=== PATIENT | female | born 1985 | race Caucasian/White ===

== ENCOUNTER 2023-02-16 12:45 | Outpatient (AMB) | payer OTHER, SELFPAY ==
--- NOTE | 2023-02-16 12:53 | MHC.PC.OV ---
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 Transferring care from Dr Stallworth ([facility] [address]). Medical records have not been requested and have not received. Voice And Data Technician Required: No Mortarman: Not Required per policy Accompanied by: Self / Same As Patient Allergies sulfamethoxazole [From Bactrim] Allergy (Intermediate, Verified 02/16/23 13:24) Hives trimethoprim [From Bactrim] Allergy (Intermediate, Verified 02/16/23 13:24) Hives Tobacco use date assessed: 02/16/23 Dental Screening Dental Screen Date: 02/16/23 Did you have a dental visit in the last 12 months?: No Did you have a dental problem in the last 6 months where you did not have access to dental care?: No Was dental information given to patient?: No HPI HPI Comments History of Present Illness Details 37-year-old female new patient presents today to establish care past medical history significant for SIBO, endometriosis. Patient reports recently moved from [place]. Discussed referral to Gastroenterology for history of SIBO, patient declined at this time states she previously followed by a software asset manager doctor and [place] prescribes her medications for this. Patient reports she believes she has endometrosis that was dx by her software asset manager.Patient reports negative Pap smear this year, offered referral to Obgyn to establish care locally however patient declines at this time. Patient requesting referral to reproductive Medicine to discuss freezing her eggs, referral entered. Declines acute concerns. Patient declined flu shot, states she is getting her COVID booster on Wednesday. [facility] Medical History Surgical History No pertinent past surgical history Family History Father No problems noted. Mother No problems noted. Social History (Reviewed 02/16/23 @ 13:25 by CARLOS Eason Housing: House Alcohol intake: never Patient Tobacco Use Status: Never used Tobacco e-Cigarette/Vaping Use: Never Used Second Hand Smoke Exposure: No service: No Current occupational status: student Cognitive needs: No Hearing needs: No Vision needs: No Questionnaire PHQ-9 Over the last 2 weeks, how often have you been bothered by any of the following problems? 1. Little interest or pleasure in doing things: not at all 2. Feeling down, depressed, or hopeless: not at all 3. Trouble falling or staying asleep, or sleeping too much: not at all 4. Feeling tired or having little energy: not at all 5. Poor appetite or overeating: not at all 6. Feeling bad about yourself - or that you are a failure or have let yourself or your family down: not at all 7. Trouble concentrating on things, such as reading the newspaper or watching television: not at all 8. Moving or speaking so slowly that other people could have noticed. Or the opposite - being so fidgety or restless that you have been moving around a lot more than usual: not at all 9. Thoughts that you would be better off or of hurting yourself in some way: not at all Total score: 0 Depression Screening Interpretation: Negative Depression Screening Done: Yes 91499 - PHQ-9 Billing: Yes Source: Developed by Drs. Johan Person, Ivis Bacon, Giovanni Willingham and colleagues, with an educational nadine from [employer]. Thrive Questionnaire Date Thrive assessed: 02/16/23 I am a: Patient What is your living situation today?: I have a steady place to live Within the past 12 months, did the food you bought not last and you didn't have the money to get more?: Never true Within the past 12 months, did you worry whether your food would run out before you got money to buy more?: Never true Do you have trouble paying for medicines?: No Do you have trouble getting transportation to medical appointments?: No Do you have trouble paying your heating and electricity bill?: No Do you have trouble taking care of your child, family member or friend?: No Do you have trouble with day-to-day activities such as bathing, preparing meals, shopping, managing finances, etc.?: No Are you currently unemployed and looking for a job?: No Are you interested in more education?: No Currently or been in a relationship where the following occur: no concerns reported AUDIT C Alcohol Use Questionnaire (AUDIT-C) 1. How often do you have a drink containing alcohol?: Never Total Score: 0 ALLI-7 AMB Questionnaire ALLI-7 Date ALLI - 7 assessed: 02/16/23 Feeling nervous, anxious, or on edge: 0 = Not at all Not being able to stop or control worryin = Not at all Worrying too much about different things: 0 = Not at all Trouble relaxin = Not at all Being so restless that it is hard to sit still: 0 = Not at all Becoming easily annoyed or irritable: 0 = Not at all Feeling afraid as if something awful might happen: 0 = Not at all Total ALLI-7 score (0-4 normal; 5-9 mild; 10-14 moderate; 15-21 severe): 0 Source: Developed by Drs. Johan Person, Ivis Bacon, Giovanni Willingham and colleagues, with an educational nadine from [employer]. ALLI-7 Assessment Billing ALLI-7 Assessment Tool: ALLI-7 Assessment 55327 Review of Systems Const Denies chills, Denies fatigue, Denies fever(s) and Denies poor appetite Eyes Denies no additional complaints ENT Reports Normal hearing present Card Denies chest pain, Denies syncope, Denies rapid heart rate and Denies dyspnea Resp Denies cough and Denies dyspnea GI Denies change in stool character, Denies constipation, Denies diarrhea, Denies nausea and Denies vomiting Denies urinary frequency, Denies dysuria and Denies urinary urgency Neuro Reports Normal hearing present, Denies confusion and Denies syncope Psych Denies confusion Endo Denies fatigue Physical exam (Primary Care) Vital Signs: Last Vital Signs Pulse 63 02/16/23 12:55 BP 120/67 02/16/23 12:55 Pulse Ox 99 02/16/23 12:55 Oxygen Delivery Method Room Air 02/16/23 12:55 BMI result Body Mass Index 23.5 Tobacco/Smoking Status: Tobacco use Status Tobacco use date assessed 02/16/23 02/16/23 13:04 Patient Tobacco Use Status Never used Tobacco 02/16/23 13:04 e-Cigarette/Vaping Use Never Used 02/16/23 13:04 PHQ-9: PHQ-9 Score PHQ-9: Total score 0 02/16/23 13:15 Depression Screening Interpretation: Negative Thrive Assessment: Date of Thrive Assessment Date Thrive assessed 02/16/23 02/16/23 13:04 Currently or been in a relationship where the following occur: no concerns reported Const General: No confusion Orientation/consciousness: No confusion HENMT Head: Yes normocephalic and Yes atraumatic Ears: external ears normal and TM's normal bilaterally General nose exam: Normal external nose present and Normal nasal mucous membranes and turbinates present Face and sinus: Yes normal facial exam and Yes sinuses nontender Mouth: moist mucous membranes Throat: Yes tonsils normal Eyes Conjunctivae: conjunctivae normal Sclerae: sclerae normal Pupils: Equal, round and reactive pupils present and Pupils normal by confrontation EOM: EOMs intact bilaterally Direct Ophthalmoscopy: normal light reflex Neck Neck: Yes no lymphadenopathy and Yes supple Thyroid: Thyroid normal Chest Chest palpation & inspection: normal inspection of the chest Resp Effort & Inspection: normal respiratory effort Auscultation: clear to auscultation bilaterally, no crackles, no rhonchi and no wheezes Cardio Rate: regular rate Rhythm: regular rhythm Peripheral pulses: radial pulses present and dorsalis pedis present GI Inspection: Yes normal to inspection Palpation (GI): Soft to palpation, nontender and No hepatosplenomegaly present Auscultation: normoactive bowel sounds Skin General skin exam: no rashes or lesions noted Neuro General: No confusion Cranial nerves: Yes Equal, round and reactive pupils present and Yes Normal hearing present Cognition (Neuro): normal cognition Gait exam (Neuro): Normal gait present Motor exam (neuro): 5/5 motor strength present throughout Deep tendon reflexes (DTR's): Right brachioradialis reflex intensity grade: 2+, Left brachioradialis reflex intensity grade: 2+, Right patellar reflex intensity grade: 2+ and Left patellar reflex intensity grade: 2+ Extrem General: No edema Assessment and Plan Assessment & Plan (1) Endometriosis: Code(s): N80.9 - Endometriosis, unspecified Plan: Declined referral to establish care with OBGYN. (2) Small intestinal bacterial overgrowth (SIBO): Code(s): K63.8219 - Small intestinal bacterial overgrowth, unspecified Plan: Declined referral to Gastroenterology patient reports that she follows with software asset manager for this. (3) Physical exam, annual: Code(s): Z00.00 - Encounter for general adult medical examination without abnormal findings Plan Follow-up 1 year or sooner needed. Orders: Orders Comprehensive [place]. Panel Fast 02/16/23 N80.9 - Endometriosis, unspecified TSH reflex Free T4 02/16/23 Z13.29 - Encounter for screening for other suspected endocrine disorder Vitamin D 25-OH Total 02/16/23 Z13.21 - Encounter for screening for nutritional disorder Complete Blood Count Auto Diff 02/16/23 Z13.0 - Encounter for screening for diseases of the blood and blood-forming organs and certain disorders involving the immune mechanism Lipid Panel 02/16/23 Z13.220 - Encounter for screening for lipoid disorders Referrals Infertility Reproductive Referral (female) N80.9 - Endometriosis, unspecified Coding Level of Care Code New Pt Prev Care 18-39yr([id number] Diagnoses Endometriosis N80.9 Small intestinal bacterial overgrowth (SIBO) K63.8219 Physical exam, annual Z00.00 Additional Codes ALLI-7 Assessment Billing - ALLI-7 Assessment Tool: ALLI-7 Assessment 31511 ([id number])
[2023-02-16 12:55] VITALS: BP 120/67; PULSE 63; O2SAT 99; BMI 23.5
== END 2023-02-16 13:24 | disposition home or self-care (01) ==
PROVIDERS: PCP Nurse Practitioner Family; Visit Provider Nurse Practitioner Family
DX: N80.9 Endometriosis, unspecified (principal); K63.8219 Small intestinal bacterial overgrowth, unspecified; Z00.00 Encounter for general adult medical examination without abnormal findings
CPT/HCPCS: 99385

== ENCOUNTER 2023-03-01 07:14 | Outpatient (REF) | payer OTHER, SELFPAY ==
[2023-03-01 07:25] LABS: MANUAL DIFF FLAG NO
[2023-03-01 07:46] LABS: Basophils Percent Auto 0.7 % (0-2); Eosinophils Absolute Auto 0.1 X10*3/uL (0.0-0.4); Eosinophils Percent Auto 1.9 % (0-4); Hematocrit 38.8 % (37.0-47.0); Hemoglobin 12.8 g/dl (12.0-16.0); Imm Gran Abs Auto 0.02 X10*3/uL (0.00-0.03); Imm Gran Pct Auto 0.3 % (0.0-0.4); Lymphocytes Absolute Auto 1.8 X10*3/uL (1.2-4.9); Lymphocytes Percent Auto 30.6 % (20-40); Mean Corpuscular Hemoglobin 29.9 pg (27.0-33.0); Mean Corpuscular Volume 90.7 fL (80.0-98.0); Mean Platelet Volume 9.2 fL (9.4-12.3); Monocytes Absolute Auto 0.5 X10*3/uL (0.1-1.2); Monocytes Percent Auto 8.6 % (2-11); Neutrophils Absolute Auto 3.4 x10*3/uL (2.0-8.3); Neutrophils Percent Auto 57.9 % (45-73); Platelet Count 232 X10*3/uL (160-400); Red Blood Count 4.28 X10*6/uL (4.20-5.50); Red Cell Distribution Width 13.4 % (11.0-16.0); White Blood Count 5.8 X10*3/uL (4.8-10.8)
[2023-03-01 08:11] LABS: Alanine Aminotransferase 22 U/L (0-31); Albumin Level 4.2 g/dL (3.5-5.0); Alkaline Phosphatase 45 U/L (39-117); Anion Gap 9 (12-20); Aspartate Amino Transferase 18 U/L (5-31); Bilirubin Total 0.3 mg/dL (0.0-1.0); Blood Urea Nitrogen 16 mg/dL (9-16); Calcium 9.1 mg/dL (8.4-10.2); Carbon Dioxide 27 mmol/L (22-29); Chloride 106 mmol/L (96-108); Cholesterol 226 mg/dL (<200); Estimated Glomerular Filt Rate > 60; Glucose Fasting 91 mg/dL (60-99); HDL Cholesterol 79 mg/dL (>40); LDL Cholesterol Calculated 140 mg/dL (<100); Sodium 138 mmol/L (135-145); Total Protein 6.9 g/dL (6.5-8.0); Triglycerides 39 mg/dL (<150)
[2023-03-01 08:27] LABS: TSH reflex Free T4 3.86 uIU/mL (0.32-4.0); Vitamin D 25-OH Total 72.7 ng/mL (>30)
== END 2023-03-01 07:15 | disposition home or self-care (01) ==
LOC: HO.LAB 07:14
PROVIDERS: PCP Nurse Practitioner Family; Visit Provider Nurse Practitioner Family
DX: N80.9 Endometriosis, unspecified (principal); Z13.0 Encounter for screening for diseases of the blood and blood-forming organs and certain disorders involving the immune mechanism; Z13.220 Encounter for screening for lipoid disorders; Z13.29 Encounter for screening for other suspected endocrine disorder; Z13.21 Encounter for screening for nutritional disorder
CPT/HCPCS: 36415; 80053; 80061; 82306; 84443; 85025